=== PATIENT | male | born 1945 | race Caucasian/White ===

== ENCOUNTER 2021-02-03 11:20 | Inpatient (IN) | payer MEDICARE ==
[~2021-02-03] VITALS: Ht 180.3 cm; Wt 88.5 kg
[2021-02-03] MEDS ORDERED: ASPIRIN 81 MG CHEW TAB PO ONE (11:45)
[2021-02-03 11:55] LABS: HEMATOCRIT 40.8 % (38.2-49.6); HEMOGLOBIN 13.7 g/dL (14.0-18.0); LYMPHOCYTES # (AUTO) 0.6 (1.0-3.2); MEAN CORPUSCULAR HEMOGLOBIN 30.7 pg (28-32); MEAN CORPUSCULAR HGB CONC 33.6 g/dL (31-35); MEAN CORPUSCULAR VOLUME 91.5 fL (81-99); MONOCYTES # (AUTO) 0.2 (0.2-0.8); MONOCYTES % 3.8 % (4.4-11.3); NEUTROPHILS # (AUTO) 4.7 (2.1-6.9); NEUTROPHILS % 85.3 % (38.7-80.0); PLATELET COUNT 225 x10e3/uL (140-360); RED BLOOD COUNT 4.46 x10e6/uL (4.3-5.7); RED CELL DISTRIBUTION WIDTH 13.3 % (11.7-14.4)
[2021-02-03 12:26] LABS: ALBUMIN 2.8 g/dL (3.5-5.0); ALBUMIN/GLOBULIN RATIO 0.7 (0.8-2.0); ANION GAP 16.4 mmol/L (8-16); CALCIUM 8.5 mg/dL (8.4-10.2); CREATININE, SERUM 0.81 mg/dL (0.72-1.25); POTASSIUM 4.4 mmol/L (3.5-5.1)
[2021-02-03 12:33] LABS: CREATINE KINASE MB 1.2 ng/mL (0-5.0)
[2021-02-03] MEDS: DEXAMETHASONE SOD PHOS 10 MG/1 ML VIAL IV SCH (13:15)
[2021-02-03] MEDS: CEFTRIAXONE 1 GM in SODIUM CHLORIDE 0.9% 50ML 50 ML IV SCH (13:15)
[2021-02-03] MEDS ORDERED: ACETAMINOPHEN 325 MG TAB PO PRN ×2 (13:30→13:45)
[2021-02-03] MEDS ORDERED: DOCUSATE SODIUM 100 MG CAP PO PRN (13:45)
[2021-02-03] MEDS ORDERED: ONDANSETRON HCL INJ 2MG/ML 2ML 2 MG/ML VIAL IV PRN (13:45)
[2021-02-03 14:34] LABS: CHOL/HDL RATIO 4.2 (3.9-4.7)
[2021-02-03] MEDS ORDERED: REMDESIVIR 200MG/NS 100ML 200 MG IV ONE (15:00)
[2021-02-03 20:29] LABS: CREATINE KINASE MB 2.3 ng/mL (0-5.0)
[2021-02-03] MEDS ORDERED: ZOLPIDEM TARTRATE 5 MG TAB PO PRN (21:00)
[2021-02-04 06:54] LABS: BASOPHILS % 0.3 % (0.0-1.0); HEMOGLOBIN 14.9 g/dL (14.0-18.0); LYMPHOCYTES # (AUTO) 0.6 (1.0-3.2); LYMPHOCYTES % 15.1 % (18.0-39.1); MEAN CORPUSCULAR HGB CONC 33.1 g/dL (31-35); MEAN CORPUSCULAR VOLUME 93.8 fL (81-99); MONOCYTES # (AUTO) 0.2 (0.2-0.8); MONOCYTES % 6.3 % (4.4-11.3); NEUTROPHILS % 77.5 % (38.7-80.0); PLATELET COUNT 214 x10e3/uL (140-360); RED CELL DISTRIBUTION WIDTH 13.4 % (11.7-14.4)
[2021-02-04 07:31] LABS: ANION GAP 18.1 mmol/L (8-16); CALCIUM 8.8 mg/dL (8.4-10.2); CREATININE, SERUM 0.73 mg/dL (0.72-1.25); MAGNESIUM 2.4 MG/DL (1.3-2.1); PHOSPHORUS 3.8 MG/DL (2.3-4.7); POTASSIUM 5.1 mmol/L (3.5-5.1)
[2021-02-04] MEDS: ASCORBIC ACID 500 MG TAB PO SCH (10:10)
[2021-02-04] MEDS: ZINC SULFATE 220 MG CAP PO SCH (10:10)
[2021-02-04] MEDS: DEXAMETHASONE SOD PHOS 10 MG/1 ML VIAL IV SCH (10:10)
[2021-02-04] MEDS: ENOXAPARIN SOD INJ 40 MG/0.4 ML SYR SC SCH (10:10)
[2021-02-04] MEDS: CEFTRIAXONE 1 GM in SODIUM CHLORIDE 0.9% 50ML 50 ML IV SCH (13:55)
[2021-02-04] MEDS: REMDESIVIR 100MG/NS 100ML 100 MG IV SCH (15:35)
[2021-02-04] MEDS ORDERED: SODIUM CHLORIDE 0.9% 250ML 250 ML ONE (20:35)
[2021-02-04] MEDS: SODIUM BICARBONATE 650 MG TAB PO SCH (23:00)
[2021-02-05 07:11] LABS: BASOPHILS % 0.1 % (0.0-1.0); HEMATOCRIT 43.3 % (38.2-49.6); LYMPHOCYTES # (AUTO) 0.5 (1.0-3.2); LYMPHOCYTES % 5.8 % (18.0-39.1); MEAN CORPUSCULAR HGB CONC 32.3 g/dL (31-35); MEAN CORPUSCULAR VOLUME 95.8 fL (81-99); MONOCYTES # (AUTO) 0.6 (0.2-0.8); MONOCYTES % 6.5 % (4.4-11.3); NEUTROPHILS # (AUTO) 8.1 (2.1-6.9); PLATELET COUNT 246 x10e3/uL (140-360); RED BLOOD COUNT 4.52 x10e6/uL (4.3-5.7); RED CELL DISTRIBUTION WIDTH 13.4 % (11.7-14.4)
[2021-02-05 07:49] LABS: ALBUMIN 2.8 g/dL (3.5-5.0); ALBUMIN/GLOBULIN RATIO 0.7 (0.8-2.0); ANION GAP 16.3 mmol/L (8-16); CALCIUM 8.4 mg/dL (8.4-10.2); CREATININE, SERUM 0.79 mg/dL (0.72-1.25); POTASSIUM 4.3 mmol/L (3.5-5.1)
[2021-02-05 07:59] LABS: MAGNESIUM 2.3 MG/DL (1.3-2.1); PHOSPHORUS 2.7 MG/DL (2.3-4.7)
[2021-02-05] MEDS: SODIUM BICARBONATE 650 MG TAB PO SCH ×3 (10:05→22:50)
[2021-02-05] MEDS: ZINC SULFATE 220 MG CAP PO SCH (10:05)
[2021-02-05] MEDS: DEXAMETHASONE SOD PHOS 10 MG/1 ML VIAL IV SCH (10:05)
[2021-02-05] MEDS: ASCORBIC ACID 500 MG TAB PO SCH (10:05)
[2021-02-05] MEDS: ENOXAPARIN SOD INJ 40 MG/0.4 ML SYR SC SCH (10:05)
[2021-02-05] MEDS: CEFTRIAXONE 1 GM in SODIUM CHLORIDE 0.9% 50ML 50 ML IV SCH (13:07)
[2021-02-05] MEDS: REMDESIVIR 100MG/NS 100ML 100 MG IV SCH (16:04)
[2021-02-05 20:59] VITALS: BP 152/93
[2021-02-05 22:10] VITALS: BP 152/93
[2021-02-06] VITALS (8 sets, daily range): BP systolic 128–154; BP diastolic 80–84
[2021-02-06] MEDS ORDERED: CRESTOR10 MG PO (03:57)
[2021-02-06] MEDS: DEXAMETHASONE SOD PHOS 10 MG/1 ML VIAL IV SCH (09:12)
[2021-02-06] MEDS: ZINC SULFATE 220 MG CAP PO SCH (09:12)
[2021-02-06] MEDS: SODIUM BICARBONATE 650 MG TAB PO SCH ×3 (09:12→21:30)
[2021-02-06] MEDS: ENOXAPARIN SOD INJ 40 MG/0.4 ML SYR SC SCH (09:12)
[2021-02-06] MEDS: ASCORBIC ACID 500 MG TAB PO SCH (09:12)
[2021-02-06] MEDS ORDERED: SODIUM CHLORIDE 0.9% 250ML 250 ML ONE (13:08)
[2021-02-06] MEDS: CEFTRIAXONE 1 GM in SODIUM CHLORIDE 0.9% 50ML 50 ML IV SCH (13:08)
[2021-02-06] MEDS: REMDESIVIR 100MG/NS 100ML 100 MG IV SCH (15:59)
[2021-02-07] VITALS (8 sets, daily range): BP systolic 128–147; BP diastolic 61–87
[2021-02-07 07:21] LABS: BASOPHILS % 0.1 % (0.0-1.0); HEMATOCRIT 42.9 % (38.2-49.6); HEMOGLOBIN 14.1 g/dL (14.0-18.0); LYMPHOCYTES # (AUTO) 1.6 (1.0-3.2); LYMPHOCYTES % 10.3 % (18.0-39.1); MEAN CORPUSCULAR HEMOGLOBIN 30.7 pg (28-32); MEAN CORPUSCULAR HGB CONC 32.9 g/dL (31-35); MEAN CORPUSCULAR VOLUME 93.3 fL (81-99); MONOCYTES # (AUTO) 1.4 (0.2-0.8); MONOCYTES % 9.2 % (4.4-11.3); NEUTROPHILS % 79.1 % (38.7-80.0); PLATELET COUNT 381 x10e3/uL (140-360); RED CELL DISTRIBUTION WIDTH 13.2 % (11.7-14.4)
[2021-02-07 07:35] LABS: ANION GAP 13.6 mmol/L (8-16); CALCIUM 8.6 mg/dL (8.4-10.2); CREATININE, SERUM 0.76 mg/dL (0.72-1.25); POTASSIUM 4.6 mmol/L (3.5-5.1)
[2021-02-07] MEDS: DEXAMETHASONE SOD PHOS 10 MG/1 ML VIAL IV SCH (09:22)
[2021-02-07] MEDS: ENOXAPARIN SOD INJ 40 MG/0.4 ML SYR SC SCH (09:22)
[2021-02-07] MEDS: SODIUM BICARBONATE 650 MG TAB PO SCH ×3 (09:22→21:25)
[2021-02-07] MEDS: ZINC SULFATE 220 MG CAP PO SCH (09:22)
[2021-02-07] MEDS: ASCORBIC ACID 500 MG TAB PO SCH (09:22)
[2021-02-07] MEDS: CEFTRIAXONE 1 GM in SODIUM CHLORIDE 0.9% 50ML 50 ML IV SCH (12:33)
[2021-02-07] MEDS: REMDESIVIR 100MG/NS 100ML 100 MG IV SCH (14:27)
[2021-02-08] VITALS: BP 120/62
[2021-02-08 04:00] VITALS: BP 123/83
[2021-02-08 08:13] VITALS: BP 125/80
[2021-02-08 08:20] VITALS: BP 125/80
[2021-02-08] MEDS: SODIUM BICARBONATE 650 MG TAB PO SCH (08:41)
[2021-02-08] MEDS: ENOXAPARIN SOD INJ 40 MG/0.4 ML SYR SC SCH (08:41)
[2021-02-08] MEDS: DEXAMETHASONE SOD PHOS 10 MG/1 ML VIAL IV SCH (08:41)
[2021-02-08] MEDS: ZINC SULFATE 220 MG CAP PO SCH (08:41)
[2021-02-08] MEDS: ASCORBIC ACID 500 MG TAB PO SCH (08:41)
[2021-02-08] MEDS ORDERED: ZINC SULFATE50 MG PO (08:52)
[2021-02-08] MEDS ORDERED: SODIUM BICARBO650 MG PO (08:52)
[2021-02-08] MEDS ORDERED: ASCORBIC ACID500 MG PO (08:52)
[2021-02-08] MEDS ORDERED: PREDNISONE20 MG PO (08:52)
[2021-02-08] MEDS ORDERED: CEPHALEXIN500 MG PO (08:52)
[2021-02-08] MEDS ORDERED: ROBITUSSIN COU118 M4 PO (08:52)
[2021-02-08] MEDS ORDERED: TESSALON PERLE100 MG PO (08:52)
[2021-02-08 11:52] VITALS: BP 125/81
== END 2021-02-08 14:45 | disposition home or self-care (01) | DRG 177 ==
LOC: ER 11:45 → ERHOLD 12:16 → IMCU 02-05 21:30
PROVIDERS: ADMIT Internal Medicine; ATTEND Internal Medicine
PROC: 8E0ZXY6 Isolation (ICD-10-PCS; principal; 2021-02-03)
PROC: XW033E5 Introduction of Remdesivir Anti-infective into Peripheral Vein, Percutaneous Approach, New Technology Group 5 (ICD-10-PCS; 2021-02-03)
DX: U07.1 COVID-19 (principal); J12.82 Pneumonia due to coronavirus disease 2019; J96.01 Acute respiratory failure with hypoxia; B19.9 Unspecified viral hepatitis without hepatic coma; E87.1 Hypo-osmolality and hyponatremia; E66.3 Overweight; Z68.26 Body mass index [BMI] 26.0-26.9, adult; E78.5 Hyperlipidemia, unspecified
CPT/HCPCS: 36415; 51700; 71045; 80048; 80053; 80061; 82550; 82553; 83036; 83735; 84100; 84484; 85025; 93005; 99285; J0456; J0696; J1100; J1650; J7050; U0002

== ENCOUNTER 2024-03-14 05:30 | Observation (INO) | payer MEDICARE ==
[2024-03-13 10:57] LABS: BASOPHILS % 0.3 % (0.0-1.0); EOSINOPHILS # (AUTO) 0.1 (0.0-0.4); EOSINOPHILS % 1.1 % (0.0-6.0); HEMOGLOBIN 14.5 g/dL (14.0-18.0); LYMPHOCYTES # (AUTO) 2.5 (1.0-3.2); LYMPHOCYTES % 31.3 % (18.0-39.1); MEAN CORPUSCULAR HEMOGLOBIN 31.5 pg (28-32); MEAN CORPUSCULAR HGB CONC 32.2 g/dL (31-35); MEAN CORPUSCULAR VOLUME 97.8 fL (81-99); MONOCYTES % 12.8 % (4.4-11.3); NEUTROPHILS # (AUTO) 4.2 (2.1-6.9); NEUTROPHILS % 53.2 % (38.7-80.0); PLATELET COUNT 152 x10e3/uL (140-360); RED CELL DISTRIBUTION WIDTH 13.3 % (11.7-14.4); WHITE BLOOD COUNT 7.88 x10e3/uL (4.8-10.8)
[~2024-03-14] VITALS: Ht 180.3 cm; Wt 110.2 kg
[2024-03-14] VITALS (7 sets, daily range): BP systolic 123–145; BP diastolic 71–89; PULSE 69–86; RESP 18–20; TEMP 97.6–98.6; O2SAT 92–100
[~2024-03-14 05:30] MED LIST: ASCORBIC ACID500 MG PO; CEPHALEXIN500 MG PO; CRESTOR10 MG PO; PREDNISONE20 MG PO; ROBITUSSIN COU118 M4 PO; SODIUM BICARBO650 MG PO; TESSALON PERLE100 MG PO; ZETIA10 MG PO; ZINC SULFATE50 MG PO
[2024-03-14] MEDS: CEFAZOLIN SODIUM 2 GM ONE (06:04)
[2024-03-14] MEDS: LACTATED RINGER'S 1,000 ML ONE (06:04)
[2024-03-14] MEDS: GABAPENTIN 300 MG CAP ONE (06:06)
[2024-03-14] MEDS: CELECOXIB 200 MG CAP ONE (06:06)
[2024-03-14] MEDS: DEXAMETHASONE SOD PHOS 10 MG/1 ML VIAL ONE (06:06)
[2024-03-14] MEDS ORDERED: TRANEXAMIC ACID 20 ML ONE (06:24)
[2024-03-14] MEDS ORDERED: SODIUM CHLORIDE 0.9% 500ML 500 ML ONE (06:24)
[2024-03-14] MEDS ORDERED: Vancomycin IV 500 MG ONE (06:24)
[2024-03-14] MEDS ORDERED: ROPIVACAINE 246.25 MG, EPINEPHRINE HCL 1:1000 1ML 0.5 MG, CLONIDINE HCL 0.08 MG, KETORO... INJ ONE (07:30)
[2024-03-14] MEDS ORDERED: DIPHENHYDRAMINE HCL INJ 50 MG/ML VIAL IV PRN (09:00)
[2024-03-14] MEDS ORDERED: ONDANSETRON HCL INJ 2MG/ML 2ML 2 MG/ML VIAL IV PRN (09:00)
[2024-03-14] MEDS ORDERED: DOCUSATE SODIUM 100 MG CAP PO PRN (09:00)
[2024-03-14] MEDS ORDERED: HYDROCODONE/APAP 5MG-325MG TAB PO PRN (09:00)
[2024-03-14] MEDS ORDERED: PROPOFOL IV EMULSION 10 MG/ML 20 ML VIAL ONE (12:09)
[2024-03-14] MEDS ORDERED: LIDOCAINE HCL 2% LOCAL INJ 5 ML SDV VIAL INJ ONE (12:09)
[2024-03-14] MEDS ORDERED: ACETAMINOPHEN 1000 MG/100 ML IV ONE (12:09)
[2024-03-14] MEDS ORDERED: ONDANSETRON HCL INJ 2MG/ML 2ML 2 MG/ML VIAL ONE (12:09)
[2024-03-14] MEDS ORDERED: DEXAMETHASONE SOD PHOS INJ 4 MG/ML SDV ONE (12:09)
[2024-03-14] MEDS ORDERED: SEVOFLURANE INHAL SOLN 250 ML PEN BTL ONE (12:09)
[2024-03-14] MEDS ORDERED: FENTANYL CITRATE/PF 100MCG/2 ML INJ ONE ×2 (13:24→13:49)
[2024-03-14] MEDS ORDERED: MIDAZOLAM HCL 2 MG/2 ML VIAL ONE (13:49)
[2024-03-14] MEDS: ROPIVACAINE/EPI/CLONIDINE/KET 50 ML SYRINGE INJ ONE (16:00)
[2024-03-14 16:45] LABS: BASOPHILS % 0.1 % (0.0-1.0); HEMATOCRIT 40.4 % (38.2-49.6); HEMOGLOBIN 12.8 g/dL (14.0-18.0); LYMPHOCYTES # (AUTO) 0.7 (1.0-3.2); LYMPHOCYTES % 7.6 % (18.0-39.1); MEAN CORPUSCULAR HGB CONC 31.7 g/dL (31-35); MEAN CORPUSCULAR VOLUME 97.8 fL (81-99); MONOCYTES # (AUTO) 0.2 (0.2-0.8); MONOCYTES % 2.2 % (4.4-11.3); NEUTROPHILS # (AUTO) 8.7 (2.1-6.9); NEUTROPHILS % 89.7 % (38.7-80.0); PLATELET COUNT 155 x10e3/uL (140-360); RED BLOOD COUNT 4.13 x10e6/uL (4.3-5.7); RED CELL DISTRIBUTION WIDTH 13.2 % (11.7-14.4); WHITE BLOOD COUNT 9.66 x10e3/uL (4.8-10.8)
[2024-03-14] MEDS ORDERED: ROPIVACAINE 0.5% 5 MG/ML 30 ML SDV ONE (17:50)
[2024-03-14] MEDS ORDERED: EPINEPHRINE HCL 1:1000 1ML 1 MG/ML AMP ONE (17:50)
[2024-03-14] MEDS: SODIUM CHLORIDE 0.9% 1000ML 1,000 ML IV SCH (18:27)
[2024-03-14] MEDS: CELECOXIB 200 MG CAP PO SCH (18:27)
[2024-03-14] MEDS: ASPIRIN 325 MG TAB PO SCH (20:00)
[2024-03-15] VITALS (7 sets, daily range): BP systolic 131–166; BP diastolic 67–82; PULSE 70–88; RESP 18–20; TEMP 97.7–99; O2SAT 95–100
[2024-03-15 05:33] LABS: HEMATOCRIT 37.1 % (38.2-49.6); HEMOGLOBIN 11.8 g/dL (14.0-18.0)
[2024-03-15] MEDS ORDERED: ACETAMINOPHEN 1000 MG/100 ML IV PRN (09:00)
[2024-03-16] VITALS: BP 151/74; PULSE 72; RESP 20; TEMP 98.1; O2SAT 100
[2024-03-16] MEDS: HYDROCODONE/APAP 7.5MG-325MG 1 EA TAB PO PRN (00:23)
[2024-03-16 05:59] LABS: HEMATOCRIT 37.9 % (38.2-49.6)
[2024-03-16 07:42] VITALS: BP 132/71; PULSE 70; RESP 18; TEMP 98; O2SAT 98
[2024-03-16 08:18] VITALS: BP 132/71; PULSE 70; RESP 18; TEMP 98; O2SAT 98
[2024-03-16 12:32] LABS: BASOPHILS % 0.2 % (0.0-1.0); EOSINOPHILS # (AUTO) 0.2 (0.0-0.4); EOSINOPHILS % 1.2 % (0.0-6.0); HEMATOCRIT 37.5 % (38.2-49.6); HEMOGLOBIN 12.1 g/dL (14.0-18.0); LYMPHOCYTES # (AUTO) 2.9 (1.0-3.2); LYMPHOCYTES % 23.9 % (18.0-39.1); MEAN CORPUSCULAR HEMOGLOBIN 31.2 pg (28-32); MEAN CORPUSCULAR HGB CONC 32.3 g/dL (31-35); MEAN CORPUSCULAR VOLUME 96.6 fL (81-99); MONOCYTES # (AUTO) 1.4 (0.2-0.8); MONOCYTES % 11.9 % (4.4-11.3); NEUTROPHILS # (AUTO) 7.5 (2.1-6.9); NEUTROPHILS % 62.3 % (38.7-80.0); PLATELET COUNT 153 x10e3/uL (140-360); RED BLOOD COUNT 3.88 x10e6/uL (4.3-5.7); RED CELL DISTRIBUTION WIDTH 13.7 % (11.7-14.4); WHITE BLOOD COUNT 12.04 x10e3/uL (4.8-10.8)
[2024-03-16] MEDS ORDERED: ONDANSETRON HCL 4 MG ORAL DISINTEGRATING TAB PO PRN (12:45)
[2024-03-16 12:47] LABS: ANION GAP 15.3 mmol/L (8-16); CALCIUM 8.7 mg/dL (8.4-10.2); CREATININE, SERUM 0.88 mg/dL (0.72-1.25); POTASSIUM 4.3 mmol/L (3.5-5.1)
[2024-03-16 15:22] VITALS: BP 140/76; PULSE 79; RESP 18; TEMP 97.8; O2SAT 95
== END 2024-03-16 17:45 | disposition home health service (06) ==
LOC: OR 05:30 → PACU V 08:57 → MED/SURG2 15:30
PROVIDERS: ADMIT Specialist; ATTEND Specialist
DX: M17.11 Unilateral primary osteoarthritis, right knee (principal); R20.0 Anesthesia of skin; J98.11 Atelectasis; E78.5 Hyperlipidemia, unspecified; K21.9 Gastro-esophageal reflux disease without esophagitis; Z87.891 Personal history of nicotine dependence; Z01.812 Encounter for preprocedural laboratory examination; Z79.899 Other long term (current) drug therapy
CPT/HCPCS: 27447; 36415 ×4; 71046; 73560; 80048; 85014 ×2; 85018 ×2; 85025 ×3; 86850; 86900; 94799; 97110; 97116 ×2; 97161; 97530 ×3; C1713 ×2; C1776 ×4; G0378 ×3; J0131; J0171; J0690 ×2; J1100 ×2; J2001; J2250; J2405; J2704; J2795; J3010; J3370; J7030 ×2; J7040; J7121; J1885

== ENCOUNTER 2024-05-24 07:00 | Outpatient (RCR) | payer MEDICARE | END 2024-05-27 | LOC: PT 07:00 | PROVIDERS: ATTEND Physician Assistant | DX: Z47.1 Aftercare following joint replacement surgery (principal); Z96.651 Presence of right artificial knee joint; M25.561 Pain in right knee; M25.661 Stiffness of right knee, not elsewhere classified; M62.81 Muscle weakness (generalized); R26.2 Difficulty in walking, not elsewhere classified ==

== ENCOUNTER 2024-06-20 10:00 | Outpatient (RCR) | payer MEDICARE | END 2024-06-27 | LOC: PT 10:00 | PROVIDERS: ATTEND Physician Assistant | DX: Z47.1 Aftercare following joint replacement surgery (principal); Z96.651 Presence of right artificial knee joint; M25.561 Pain in right knee; M25.661 Stiffness of right knee, not elsewhere classified; M62.81 Muscle weakness (generalized); R26.2 Difficulty in walking, not elsewhere classified ==